=== PATIENT | male | born 1955 | race Caucasian/White ===

== ENCOUNTER 2019-10-12 00:08 | Day surgery (SDC) | payer OTHER, SELFPAY ==
[2019-10-08 10:33] VITALS: BMI 26.7
[2019-10-12 10:12] VITALS: BP 125/6; PULSE 63; RESP 20; TEMP 36.8; O2SAT 98
[2019-10-12] MEDS: LACTATED RINGERS 1,000 ML 150 ML IV CONT (10:25)
--- NOTE | 2019-10-12 11:27 | P.PNAN_ITS ---
Anes - Initial Pre Proc Eval Procedure: Operation Date: 10/12/19 11:30 Proposed Procedures p Screening Colonoscopy - Jorje Garces MD Date/Time: 10/12/19 11:27 Surgeon: Jorje Garces MD Pre Op Diagnosis: Neoplasm screening Patient Data Age: 64 Gender: M Height: 5 ft 10 in Weight: 86 kg Last Vital Signs Temp 36.8 C 10/12/19 10:12 Pulse 63 10/12/19 10:12 Resp 20 10/12/19 10:12 BP 125/6 L 10/12/19 10:12 Pulse Ox 98 10/12/19 10:12 Allergies Allergy/AdvReac Type Severity Reaction Status Date / Time hydralazine Allergy Intermediate Hives Verified 10/12/19 10:17 Home Medications Medication Instructions Recorded Confirmed Type fluticasone propionate 50 1 spray NASAL DAILY 05/13/19 10/08/19 History mcg/actuation nasal spray,suspension aspirin 81 mg tablet,delayed 81 mg PO QAM tablet 05/26/19 10/08/19 History release atorvastatin 40 mg tablet 40 mg PO DAILY #90 tablet 07/23/19 10/08/19 Rx lisinopril 20 1 tablet PO DAILY #90 tablet 08/04/19 10/08/19 Rx mg-hydrochlorothiazide 25 mg tablet Patient hx anesthesia problems: none Family hx anesthesia problems: none PMFSH Past Medical History Medical History Acute CVA (cerebrovascular accident) Adverse drug reaction Allergic reaction of correct medicinal substance properly administered Bicuspid aortic valve Essential (primary) hypertension Hyperlipidemia Stomach ulcer Upper GI bleed Surgical History Surgical History Hx of sinus surgery Family History Family History Mother COPD (chronic obstructive pulmonary disease) Cancer Father Diabetes mellitus Heart disease Hypertension Social History Social History Social History: Patient lives with his Ariane who he does needs to be a full code. 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 Patient is a lifelong non smoker and does not drink alcohol. He does not use illicit drugs. He has 3 children. 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 [employer] Gender identity (if verbalized by the patient): Male Spiritual care concerns: No Agree to blood products: No Anes - Eval Final PreProcedure Day of Procedure 10/12/19 11:27 Patient weight: overweight Heart: regular rate and rhythm Lungs: clear to auscultation Airway: Mallampati scale class II Neurological: alert and oriented Last oral intake: >/= 8 hours ASA classification: III Emergent: no Anesthetic plan: proceed Anesthesia type and monitoring: general GIVS and standard monitoring Informed Consent: The patient's anesthetic plan and its attendant risks and benefits were discussed with the patient/family/POA. Questions were solicited and answers provided to the satisfaction of the patient/family/POA.
--- NOTE | 2019-10-12 12:10 | PM.HPGS ---
History of Present Illness History of Present Illness Consent: Risks, benefits, and alternatives have been discussed and questions answered. Patient agrees to proceed with procedure. Chief complaint: Neoplasm screening Narrative: Luigi Vela is a 64 year old male here for screening colonoscopy, last one about 30 years ago Review of Systems Constitutional: Constitutional: Denies headache(s) and Denies weakness Eyes: Eyes: Denies blurry vision ENT: Reports Normal hearing present, Denies headache(s) and Denies neck pain Cardiovascular: Cardiovascular: Denies chest pain and Denies dyspnea Respiratory: Respiratory: Denies dyspnea Gastrointestinal: Gastrointestinal: Reports no additional gastrointestinal complaints Genitourinary: Genitourinary: Denies dysuria Musculoskeletal: Musculoskeletal: Denies neck pain Integumentary/Breasts: Skin/Breast: Denies dry skin Neurologic: Reports Normal hearing present, Denies headache(s) and Denies weakness Psychiatric: Psychiatric: Denies anxiety Endocrine: Endocrine: Denies change in body appearance Hematologic/Lymphatic: Hematologic/Lymphatic: Denies easy bleeding Allergic/Immunologic: Allergic/Immunologic: Denies urticaria PMFSH Past Medical History Medical History Acute CVA (cerebrovascular accident) Adverse drug reaction Allergic reaction of correct medicinal substance properly administered Bicuspid aortic valve Essential (primary) hypertension Hyperlipidemia Stomach ulcer Upper GI bleed Surgical History Surgical History Hx of sinus surgery Family History Family History Mother COPD (chronic obstructive pulmonary disease) Cancer Father Diabetes mellitus Heart disease Hypertension Social History Social History Social History: Patient lives with his Ariane who he does needs to be a full code. 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 He does not use illicit drugs. He has 3 children. 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 [employer] Gender identity (if verbalized by the patient): Male Spiritual care concerns: No Agree to blood products: No Meds Home Medications and Allergies Home Medications Medication Instructions Recorded Confirmed Type fluticasone propionate 50 1 spray NASAL DAILY 05/13/19 10/08/19 History mcg/actuation nasal spray,suspension aspirin 81 mg tablet,delayed 81 mg PO QAM tablet 05/26/19 10/08/19 History release atorvastatin 40 mg tablet 40 mg PO DAILY #90 tablet 07/23/19 10/08/19 Rx lisinopril 20 1 tablet PO DAILY #90 tablet 08/04/19 10/08/19 Rx mg-hydrochlorothiazide 25 mg tablet Allergies Allergy/AdvReac Type Severity Reaction Status Date / Time hydralazine Allergy Intermediate Hives Verified 10/12/19 10:17 Vital Signs Vital Signs - 24 hr 10/12/19 10:12 Temperature 98.2 F Pulse Rate 63 Respiratory Rate 20 Blood Pressure 125/6 L Pulse Oximetry 98 Exam Const: General: comfortable and no acute distress HENMT: General nose exam: Normal nares present Eyes: General: appearance normal, both eyes and all related structures Neck: Neck: no JVD Resp: Auscultation: clear to auscultation bilaterally Cardio: Rate: regular rate Rhythm: regular rhythm GI: Inspection: non-distended GI Palp: Yes Soft to palpation Skin: General skin exam: normal color Neuro: General: gait normal Speech: normal speech Extrem: General: normal to inspection Psych: Mental Status: mental status grossly normal Assessm
[2019-10-12 12:33] VITALS: BP 116/59; PULSE 61; RESP 17; O2SAT 100
[2019-10-12 12:43] VITALS: BP 133/66; PULSE 58; RESP 19; O2SAT 99
[2019-10-12 12:53] VITALS: BP 132/66; PULSE 58; RESP 21; O2SAT 100
== END 2019-10-12 13:05 | disposition home or self-care (01) ==
PROVIDERS: PCP Family Medicine; Visit Provider Internal Medicine Gastroenterology
PROC: 0DJD8ZZ Inspection of Lower Intestinal Tract, Via Natural or Artificial Opening Endoscopic (ICD-10-PCS; CPT 45378; principal; 2019-10-12 11:30)
DX: Z12.11 Encounter for screening for malignant neoplasm of colon (principal); D12.4 Benign neoplasm of descending colon; K57.30 Diverticulosis of large intestine without perforation or abscess without bleeding; K64.8 Other hemorrhoids; I10 Essential (primary) hypertension; E78.5 Hyperlipidemia, unspecified; Q23.1 Congenital insufficiency of aortic valve; Z87.11 Personal history of peptic ulcer disease; Z86.73 Personal history of transient ischemic attack (TIA), and cerebral infarction without residual deficits; Z79.82 Long term (current) use of aspirin
CPT/HCPCS: 45385; 88305; J2370; J2704; J7120

== ENCOUNTER 2020-04-04 14:06 | Outpatient (CLI) | payer OTHER, SELFPAY ==
--- NOTE | ~2020-04-04 | US_ITS ---
EXAMINATION: US art doppler w press LE BI DATE: 04/04/2020 14:45 INDICATION: Exercise-induced cramps and claudication TECHNIQUE: Segmental pressures and plethysmographic and Doppler waveforms of the brachial and lower e xtremity arteries were obtained. COMPARISON: None. FINDINGS: Right and left brachial artery pressures of 128 mm Hg and 127 mm Hg, respectively, are concordant (no rmal difference <= 30 mmHg). The right and left high-thigh pressure indices are 1.19 and 1.19, respec tively (normal > 1.2). The right ankle-brachial index (SARAHI) is 1.11 (normal >= 0.9-1). The right great toe-brachial index (T BI) is 0.59 (normal >= 0.6-0.8). The right lower extremity segmental pressure gradients are normal (n ormal gradients <= 20-30 mmHg between adjacent levels on the same leg or the same levels on the two l egs). Arterial waveforms are triphasic at the right superficial femoral artery and biphasic in the re maining arteries with brisk systolic upstrokes throughout. The left SARAHI is 1.15. The left TBI is 1.22. The left lower extremity segmental pressure gradients are normal accounting for likely artifactually elevated pressures at the left [id number] popliteal a rtery. Arterial waveforms are triphasic at the left common femoral, superficial femoral and popliteal arteries and biphasic at the left posterior tibial and dorsalis pedis arteries with brisk systolic u pstrokes throughout. IMPRESSION: 1. Normal SARAHI's bilaterally and normal left and borderline right TBIs. No significant occlusive disea se. Reviewed, dictated and finalized at location B. IMPRESSION: 1. Normal SARAHI's bilaterally and normal left and borderline right TBIs. No signi ficant occlusive disease.
== END 2020-04-04 14:07 | disposition home or self-care (01) ==
PROVIDERS: PCP Family Medicine; Visit Provider Nurse Practitioner Adult Health
DX: R25.2 Cramp and spasm (principal); I73.9 Peripheral vascular disease, unspecified
CPT/HCPCS: 93923

== ENCOUNTER 2020-10-16 09:27 | Outpatient (CLI) | payer OTHER, SELFPAY ==
--- NOTE | ~2020-10-16 | CT_ITS ---
EXAMINATION: CT diagnostic chest w con EXAM DATE: 10/16/2020 10:28 INDICATION: Ascending aortic aneurysm. TECHNIQUE: Spiral CT of the chest following intravenous injection of 75 mL Omnipaque 350. Axial, cor onal and sagittal images of the chest were reviewed. Coronal maximum intensity pixel images of chest reviewed. The dose-length product (DLP) for this examination was 191.12 mGy-cm. The exposure was t ailored according to patient size (auto mA exposure control), and iterative reconstruction (ASIR) was used as additional dose reduction technique. There is no prior study for comparison. FINDINGS: The aortic root measures 4.0 cm in diameter, mild dilated. The ascending aorta beyond this measures 3.6 cm, normal in caliber. There is no aortic dissection. The lungs are clear. There are n o pleural or pericardial effusions. Tracheobronchial tree is patent. There is no mediastinal, hil ar or axillary lymphadenopathy. There is no pneumothorax. Heart normal in size. There is mild c oronary arterial calcification, arterial sclerosis. Upper abdomen is unremarkable. There is thorac ic spondylosis without osteoblastic or osteolytic lesions identified. IMPRESSION: 1. Minimally dilated aortic root at 4.0 cm. Reviewed, dictated and finalized at location A.
[2020-10-16 10:22] LABS: Estimated Glomerular Filt Rate > 60
== END 2020-10-16 09:28 | disposition home or self-care (01) ==
LOC: ANHIMG 09:35
PROVIDERS: PCP Family Medicine; Visit Provider Internal Medicine Cardiovascular Disease
DX: I71.2 Thoracic aortic aneurysm, without rupture (principal)
CPT/HCPCS: 71260; Q9967

== ENCOUNTER 2021-12-26 01:09 | Day surgery (SDC) | payer MEDICARE, SELFPAY ==
[2021-12-25 14:46] VITALS: BMI 25.9
[2021-12-26] VITALS (9 sets, daily range): BP systolic 121–151; BP diastolic 56–80; PULSE 50–67; RESP 16; TEMP 36.6–37.1; O2SAT 96–100; BMI 25.9
[2021-12-26 09:17] LABS: Basophils Percent Auto 0.5 % (0.2-1.2); Eosinophils Absolute Auto 0.2 K/mm3 (0-0.3); Eosinophils Percent Auto 2.9 % (0-4.4); Hematocrit 43.1 % (42.0-52.0); Hemoglobin 14.2 g/dL (14.0-18.0); Immature Granulocyte Absolute 0.04 K/mm3 (0.00-0.031); Immature Granulocyte Percent A 0.5 % (0-0.5); Lymphocytes Absolute Auto 1.46 K/mm3 (0.9-3.2); Lymphocytes Percent Auto 20.1 % (18.3-44.2); Mean Corpuscular HGB Conc 32.9 g/dl (32-36); Mean Corpuscular Hemoglobin 29.6 pg (26-34); Mean Corpuscular Volume 89.8 fl (80-100); Mean Platelet Volume 9.7 fl (7.4-10.4); Monocytes Absolute Auto 0.8 K/mm3 (0.1-0.6); Monocytes Percent Auto 10.3 % (2.6-8.5); Neutrophils Absolute Auto 4.8 K/mm3 (1.3-6.7); Neutrophils Percent Auto 65.7 % (45.5-73.1); Platelet Count Result 229 k/mm3 (150-375); Red Cell Distribution Width 13.4 % (11.5-14.5); White Blood Count 7.3 K/mm3 (4.5-10.0)
[2021-12-26 09:26] LABS: Anion Gap 3 mmol/L (8-16); Blood Urea Nitrogen 20 mg/dL (9-20); Calcium 10.4 mg/dL (8.4-10.2); Carbon Dioxide 29 mmol/L (22-30); Chloride 107 mmol/L (98-107); Estimated CRCL calculation 82 ml/min; Estimated Glomerular Filt Rate > 60; Glucose 96 mg/dL (65-110); Potassium 4.1 mmol/L (3.4-5.0); Sodium 139 mmol/L (137-145)
[2021-12-26] MEDS: SODIUM CHLORIDE 0.9% IV 500 ML 100 ML IV CONT (09:30)
--- NOTE | 2021-12-26 09:48 | PM.IMHP ---
H&P: HPI History of Present Illness Date/Time: 12/26/21 09:48 Chief Complaint: Chest pain, abnormal stress test Narrative: 66-year-old male whom I followed for his bicuspid aortic valve (no significant /AI by echo 10/2021) and mild dilatation of the ascending aorta ( 4.0 cm in 10/2021) who has coronary artery calcification by CT. Recently in [facility] he had several hours of left-sided chest discomfort associated with left arm discomfort. This has recurred a couple more times since he has been back in [place], most recently at after he came home from the [employer] a week or 2 ago. Interestingly, he is able to exercise on his treadmill with no particular problems with chest discomfort, although he does complain of some dizziness when he gets off the treadmill. A recent stress test showed he had good exercise tolerance but significant ST depression on his EKG. He imaging did not show any perfusion defects, normal LV function. Because of the discrepant results on his stress test, suspicion of underlying coronary disease and chest pain I have recommended further evaluation with a cardiac catheterization. Patient also has a history of hypertension and 2 strokes in 2019. Review of Systems Constitutional: Constitutional: Denies fever(s) Cardiovascular: Cardiovascular: Reports chest pain, Denies pedal edema and Denies lightheadedness Respiratory: Respiratory: Denies chest congestion, Reports dyspnea and Reports dyspnea on exertion ( After is treadmill stress test in the office) Gastrointestinal: Gastrointestinal: Denies abdominal pain and Denies hematochezia Musculoskeletal: Musculoskeletal: Reports no additional musculoskeletal complaints Integumentary/Breasts: Skin/Breast: Reports system reviewed and no additional complaints, except as docu Neurologic: Reports system reviewed and no additional complaints, except as documented, Denies behavioral changes and Denies confusion Psychiatric: Psychiatric: Denies behavioral changes and Denies confusion [facility] Past Medical History Medical History (Updated 12/26/21 @ 09:54 by Fabi Sauceda MD) Adverse drug reaction Allergic reaction of correct medicinal substance properly administered Bicuspid aortic valve Environmental allergies Essential (primary) hypertension History of stroke (~04/2019) Hyperlipidemia Stomach ulcer Thoracic ascending aortic aneurysm Upper GI bleed Surgical History Surgical History Hx of sinus surgery Family History Family History Mother COPD (chronic obstructive pulmonary disease) Cancer Father Diabetes mellitus Heart disease heart attack age 55, CABG Hypertension Social History Social History Social History: Patient lives with his Ariane who he does needs to be a full code. 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 He does not use illicit drugs. He has 3 children. 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
--- NOTE | 2021-12-26 09:56 | WPDMODSED ---
Moderate Sedation Note-Pt Data Patient Data Diagnosis: chest pain, abnormal stress test Present Complaint: chest pain, abnormal stress test Procedure to be performed/Plan: conscious sedation Cardiac catheterization Possible PCI Allergies Allergy/AdvReac Type Severity Reaction Status Date / Time hydralazine Allergy Intermediate Hives Verified 12/26/21 08:52 Home Medications Medication Instructions Recorded Confirmed Type fluticasone propionate 50 1 spray intranasal DAILY 05/13/19 12/25/21 History mcg/actuation nasal spray,suspension (Allergy Relief (fluticasone)) aspirin 81 mg tablet,delayed 81 mg PO QAM 05/26/19 12/26/21 History release atorvastatin 40 mg tablet 40 mg PO DAILY #90 tabs 09/12/21 12/26/21 Rx metoprolol succinate 25 mg 25 mg PO DAILY 10/04/21 12/26/21 History tablet,extended release 24 hr lisinopril 20 1 tablet PO DAILY #90 tabs 10/22/21 12/26/21 Rx mg-hydrochlorothiazide 25 mg tablet Current Medications: Active Medications Sodium Chloride (Normal Saline Iv) 500 mls @ 100 mls/hr IV CONT .Q5H SHERRY Sedation/Anesthesia: No previous sedation/anesthesia problems (including family history). COUNTS INCLUDE 234 BEDS AT THE [facility] Past Medical History Medical History Adverse drug reaction Allergic reaction of correct medicinal substance properly administered Bicuspid aortic valve Environmental allergies Essential (primary) hypertension History of stroke (~04/2019) Hyperlipidemia Stomach ulcer Thoracic ascending aortic aneurysm Upper GI bleed Surgical History Surgical History Hx of sinus surgery Family History Family History (Updated 12/26/21 @ 09:52 by Fabi Sauceda MD) Mother COPD (chronic obstructive pulmonary disease) Cancer Father Diabetes mellitus Heart disease heart attack age 55, CABG Hypertension Social History Social History Social History: Patient lives with his Ariane who he does needs to be a full code. 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 He does not use illicit drugs. He has 3 children. 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 [employer] Gender identity (if verbalized by the patient): Male Spiritual care concerns: No Agree to blood products: No Mod Sed Physical Exam Physical Exam Pre Procedural Exam: Normal: Appearance, Eyes, Ears, Nose, Neck, Throat, Airway, Lungs, Heart Size ( 1-2/6 VITA upper sternal border), Heart Rate, Heart Rhythm, Neuro Exam, Abdomen, Extremities ( intact femoral and pedal pulses) and Skin Hours since solid foods: 12 Hours since liquid intake: 12 Mallampati Classification: class II Internal Medicine - PN: Obj Da Vital Signs Vital Signs: Vital Signs - 24 hr 12/26/21 09:15 Temperature 98.7 F Pulse Rate 53 L Respiratory Rate 16 Blood Pressure 121/56 L Pulse Oximetry 98 Oxygen Delivery Room Air Meds/Results Medications: Active Medications Generic Name Dose Route Start Last Admin Trade Name Freq PRN Reason Stop Dose Admin Sodium Chloride 500 mls @ 100 mls/hr 12/26/21 08:50 Normal Saline Iv IV CONT .Q5H SHERRY Labs CBC & Chem 7: 12/26/21 08:54 12/26/21 08:54 Labs: Laboratory Results - last 24 hr 12/26/21 12/26/21 08:54 08:54 WBC 7.3 RBC 4.80 Hgb 14.2 Hct 43.1 MCV 89.8 MCH 29.6 MCHC 32.9 RDW 13.4 Plt Count 229 MPV 9.7 Immature Gran % (Auto) 0.5 Neut % (Auto) 65.7 Lymph % (Auto) 20.1 [place] % (Auto) 10.3 H Eos % (Auto) 2.9
--- NOTE | 2021-12-26 10:39 | PM.OP ---
Procedure Note - Brief Procedure Note - Brief Date of procedure: 12/26/21 Pre-op diagnosis: chest pain and abn stress test Chest pain and abnormal stress Post-op diagnosis: Other ( minimal coronary plaquing) Procedure performed: conscious sedation left heart catheterization selective coronary angiography left ventriculography angiography the right common femoral artery Description of procedure: uneventful cardiac catheterization Surgeon: Fabi Sauceda MD Findings: minimal coronary plaquing
--- NOTE | 2021-12-26 10:44 | WPDCARDPROC ---
Cardiac Cath Procedure Note Date of procedure:: 12/27/21 Performing physician:: Fabi Sauceda MD Indication:: chest pain, abnormal stress Brief clinical history:: 66-year-old male whom I followed for his bicuspid aortic valve? (no significant /AI by echo 10/2021) and mild dilatation of the ascending aorta? ( 4.0 cm in 10/2021) who has coronary artery calcification by CT.? Recently in [facility] he had several hours of left-sided chest discomfort associated with left arm discomfort.? This has recurred a couple more times since he has been back in [place], most recently at after he came home from the [employer] a week or 2 ago.? Interestingly, he is able to exercise on his treadmill with no particular problems with chest discomfort, although he does complain of some dizziness when he gets off the treadmill.? A recent stress test showed he had good exercise tolerance but significant ST depression on his EKG.? He imaging did not show any perfusion defects, normal LV function.? Because of the discrepant results on his stress test, suspicion of underlying coronary disease and chest pain I have recommended further evaluation with a cardiac catheterization. Procedure Procedure performed:: Procedure: 1. Conscious sedation 2. Left heart catheterization 3. Selective Coronary angiography 4. Left ventriculography 5. Angiography of a right femoral artery . Sedation/Medication given:: Conscious sedation: The patient has no known prior history of adverse affects of conscious sedation. Oropharynx was clear. The patient is deemed a good candidate for conscious sedation. Conscious sedation began at: 10 12 Conscious sedation ended at: 1029 Total conscious sedation time: 17 minutes Medications: Versed 1 mg, 50 mcg IV push The patient had continuous hemodynamic monitoring, and was also continuously monitored by: Helene Reyez RN The patient tolerated conscious sedation well. . Access site:: right femoral artery Estimated blood loss:: 5 cc Procedure note:: Catheters: 5 Gambian arterial sheath, a 5 Gambian 4 cm right left Marly catheters, 5 Gambian pigtail Detailed procedure: After informed consent the patient brought to the metallurgical lab technician and the right femoral area was prepped and draped in the usual fashion. After conscious sedation and local anesthesia the right femoral artery was punctured and cannulated with the arterial sheath. Selective Coronary angiography was performed with the coronary catheters in multiple projections. These were withdrawn. The pigtail catheter was advanced into the central circulation and left ventricle for pressure measurements and left ventriculography which was performed in the CABRERA projection. This was withdrawn. angiography of the right common femoral artery was performed the sheath was a suitable position for the Angio-Seal vascular occlusion device. The arterial sheath was removed, Angio-Seal applied, and hemostasis was obtained.. The patient tolerated the procedure well with no complications. Estimated blood loss was negligible. Findings:: Pressures: Post angiographic aortic pressure: 170/80 mmHg Post angiographic LV pressure: 160/20 mmHg Left coronary artery: The left main, Left anterior descending and circumflex vessel is widely patent. There is mild coronary plaquing of the mid Left anterior descending. Right coronary artery the right coronary artery was widely patent. There is minimal coronary plaquing of the proximal mid segments. Left ventriculogram: Left ventriculography revealed good left ventricular function, no segmental wall motion abnormalities, ejection fraction 65%. No mitral regurgitation. Mildly dilated aortic root /sinuses of Valsalva. Conclusion:: 1. Widely patent vessels with minimal coronary plaquing as above 2. Normal left ventricular systolic function 3. N
== END 2021-12-26 14:15 | disposition home or self-care (01) ==
PROVIDERS: PCP Family Medicine; Visit Provider Internal Medicine Cardiovascular Disease
PROC: 4A023N7 Measurement of Cardiac Sampling and Pressure, Left Heart, Percutaneous Approach (ICD-10-PCS; CPT 93452; principal; 2021-12-26 10:00)
DX: I25.10 Atherosclerotic heart disease of native coronary artery without angina pectoris (principal); R94.39 Abnormal result of other cardiovascular function study; R07.9 Chest pain, unspecified; Q23.1 Congenital insufficiency of aortic valve; I77.810 Thoracic aortic ectasia; I10 Essential (primary) hypertension; E78.5 Hyperlipidemia, unspecified; Z79.82 Long term (current) use of aspirin
CPT/HCPCS: 36415; 80048; 85025; 93458; C1760; C1887; C1894; G0269; J1644; J2250; J3010; J7040

== ENCOUNTER 2021-12-27 09:03 | Observation (INO) | payer MEDICARE, SELFPAY ==
[2021-12-27] VITALS (8 sets, daily range): BP systolic 102–193; BP diastolic 61–86; PULSE 54–69; RESP 8–18; TEMP 36.4–36.7; O2SAT 97–100; BMI 26.4
--- NOTE | ~2021-12-27 | US_ITS ---
EXAMINATION: US arterial duplex LE RT DATE: 12/27/2021 10:17 INDICATION: Right groin swelling post cardiac catheterization one day prior. TECHNIQUE: Multiple grayscale and Doppler ultrasound images of the right groin were obtained. Segment al pressures and plethysmographic and Doppler waveforms of the brachial and lower extremity arteries were also obtained. COMPARISON: None FINDINGS: 10 x 10 x 9 mm pseudoaneurysm arising from the right common femoral artery with to and fro vascular f low in a thin 7 mm long neck. Normal triphasic waveform identified in the right common femoral and anaya perficial femoral arteries. Normal venous waveform with augmentation with compression but no arterial ization to suggest arteriovenous fistula. Right and left brachial artery pressures of 188 mm Hg and 175 mm Hg, respectively, are concordant (no rmal difference <= 30 mmHg). The right and left high-thigh pressure indices were unable to be obtaine d due to inability to occlude the vessels. The right ankle-brachial index (SARAHI) is 0.95 (normal >= 0.9-1). The right great toe-brachial index (T BI) is 0.61 (normal >= 0.6-0.8). The right lower extremity segmental pressure gradients are increased between the right [id number] popliteal artery and the right dorsalis pedis artery (normal gradie nts <= 20-30 mmHg between adjacent levels on the same leg or the same levels on the two legs). Arteri al waveforms demonstrate brisk systolic upstrokes throughout the arteries of the right lower limb. The left SARAHI is 0.96. The left TBI is 0.68. The left lower extremity segmental pressure gradients are normal. Arterial waveforms demonstrate brisk systolic upstrokes throughout the arteries of the left lower limb. IMPRESSION: 1. 1 cm pseudoaneurysm at the right groin which would be amenable to either thrombosed either with di rected pressure or thrombin injection. 2. No significant arterial occlusive disease to either lower limb with Normal SARAHI's and TBI's bilater ally. 3. Significant hypertension with brachial artery pressures on the right and left of 188 and 175 mmHg respectively Reviewed, dictated and finalized at location A. IMPRESSION: 1. 1 cm pseudoaneurysm at the right groin which would be amenable to either thr ombosed either with directed pressure or thrombin injection. 2. No significant arterial occlusive disease to either lower limb with Normal A BI's and TBI's bilaterally. 3. Significant hypertension with brachial artery pressures on the right and lef t of 188 and 175 mmHg respectively
--- NOTE | ~2021-12-27 | US_ITS ---
EXAMINATION: US arterial duplex LE RT DATE: 12/28/2021 14:34 INDICATION: Pseudoaneurysm TECHNIQUE: Multiple grayscale and Doppler ultrasound images of the right groin were obtained. COMPARISON: None FINDINGS: There is a persistent 1.3 x 1.2 x 1.1 cm anechoic pseudoaneurysm identified along side the right comm on femoral artery. The artery demonstrates normal triphasic waveforms on color Doppler. Upon closer i nspection the flow within the neck appear to be unidirectional towards the pseudoaneurysm with a seco nd exiting neck with efferent unidirectional directional flow was seen extending to the adjacent righ t common femoral vein. Color Doppler imaging of the right common femoral vein demonstrated normal russel ous waveform more distally in the thigh the neck but with elevated velocities and subtle arterializat ion of the waveform downstream from the region of the neck consistent with AV fistula formation. Dr. Miller discussed these findings with Julianna Carlson N.P. at 2:50 PM. IMPRESSION: 1. Persistent 1.3 x 1.2 x 1.1 cm pseudoaneurysm along an AV fistula extending between the right commo n femoral artery and the right common femoral vein. Reviewed, dictated and finalized at location A. IMPRESSION: 1. Persistent 1.3 x 1.2 x 1.1 cm pseudoaneurysm along an AV fistula extending b etween the right common femoral artery and the right common femoral vein.
[2021-12-27 09:40] LABS: Basophils Percent Auto 0.5 % (0.2-1.2); Eosinophils Absolute Auto 0.2 K/mm3 (0-0.3); Eosinophils Percent Auto 2.7 % (0-4.4); Hematocrit 43.1 % (42.0-52.0); Immature Granulocyte Absolute 0.03 K/mm3 (0.00-0.031); Immature Granulocyte Percent A 0.4 % (0-0.5); Lymphocytes Absolute Auto 1.53 K/mm3 (0.9-3.2); Lymphocytes Percent Auto 20.4 % (18.3-44.2); Mean Corpuscular HGB Conc 32.5 g/dl (32-36); Mean Corpuscular Hemoglobin 28.9 pg (26-34); Mean Platelet Volume 9.9 fl (7.4-10.4); Monocytes Absolute Auto 0.7 K/mm3 (0.1-0.6); Monocytes Percent Auto 8.7 % (2.6-8.5); Neutrophils Absolute Auto 5.1 K/mm3 (1.3-6.7); Neutrophils Percent Auto 67.3 % (45.5-73.1); Platelet Count Result 225 k/mm3 (150-375); Red Blood Count 4.84 M/mm3 (4.6-6.20); Red Cell Distribution Width 13.5 % (11.5-14.5); White Blood Count 7.5 K/mm3 (4.5-10.0)
--- NOTE | 2021-12-27 09:42 | PC.NURSE ---
Pt offered morphine and Zofran but does not wish to take medications at this time.
[2021-12-27 09:51] LABS: Alanine Aminotransferase 26 U/L (6-50); Albumin Level 3.9 g/dL (3.5-5.1); Alkaline Phosphatase 68 U/L (38-126); Anion Gap 6 mmol/L (8-16); Aspartate Amino Transferase 27 U/L (17-59); Bilirubin,Total 0.7 mg/dL (0.2-1.3); Blood Urea Nitrogen 15 mg/dL (9-20); Calcium 10.5 mg/dL (8.4-10.2); Carbon Dioxide 25 mmol/L (22-30); Chloride 105 mmol/L (98-107); Estimated CRCL calculation 82 ml/min; Estimated Glomerular Filt Rate > 60; Glucose 126 mg/dL (65-110); Potassium 3.8 mmol/L (3.4-5.0); Sodium 136 mmol/L (137-145)
[2021-12-27 09:52] LABS: Prothrombin Time 12.6 Seconds (11.1-14.7)
[2021-12-27 09:54] LABS: Partial Thromboplastin Time 27.3 SECONDS (22.3-36.8)
--- NOTE | 2021-12-27 11:09 | ED.WOUNDLAC ---
HPI - Wound/Laceration General Chief Complaint: Wound/Laceration Stated Complaint: Swelling at Cath Injection Site after procedure Time Seen by Provider: 12/27/21 09:13 Source: patient, RN notes reviewed and old records reviewed Mode of arrival: ambulatory Limitations: no limitations History of Present Illness HPI narrative: This is a 66 year old male who presents for evaluation of right groin swelling s/p cardiac catheterization. Patient states this morning he was sitting down and he felt pop in his right groin. He also noticed discomfort and swelling to his right groin at site of his cardiac catheterization from yesterday. PAtient reports difficulty walking due to pain in right groin. He denies numbness, tingling or limp weakness. He also denies dizziness. Related Data Home Medications Medication Instructions Recorded Confirmed fluticasone propionate 50 2 spray intranasal PRN PRN 05/13/19 12/27/21 mcg/actuation nasal Allergic Symptoms spray,suspension (Allergy Relief (fluticasone)) aspirin 81 mg tablet,delayed 81 mg PO QAM 05/26/19 12/27/21 release metoprolol succinate 25 mg 25 mg PO DAILY 10/04/21 12/27/21 tablet,extended release 24 hr Allergies Allergy/AdvReac Type Severity Reaction Status Date / Time hydralazine Allergy Intermediate Hives Verified 12/27/21 14:27 Review of Systems Review of Systems: All systems reviewed & are unremarkable except as noted in HPI and below Constitutional: Constitutional: Denies chills and Denies fever(s) Cardiovascular: Cardiovascular: Denies chest pain, Denies rapid heart rate and Denies slow heart rate Gastrointestinal: Gastrointestinal: Denies abdominal pain, Denies bloating and Denies diarrhea Integumentary/Breasts: Skin/Breast: Denies pruritus and Denies erythema Neurologic: Denies focal weakness [facility] Past Medical History Medical History (Updated 12/27/21 @ 11:45 by Orquidea Nye MD) Adverse drug reaction Allergic reaction of correct medicinal substance properly administered Bicuspid aortic valve Environmental allergies Essential (primary) hypertension History of stroke (~04/2019) Hyperlipidemia Stomach ulcer Thoracic ascending aortic aneurysm Upper GI bleed Surgical History Surgical History (Updated 12/27/21 @ 11:17 by Orquidea Nye MD) Hx of sinus surgery S/P cardiac catheterization Family History Family History (Updated 12/26/21 @ 09:52 by Fabi Sauceda MD) Mother COPD (chronic obstructive pulmonary disease) Cancer Father Diabetes mellitus Heart disease heart attack age 55, CABG Hypertension Social History Social History Social History: Patient lives with his Ariane who he does needs to be a full code. 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 He does not use illicit drugs. He has 3 children. 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 [employer] Gender identity (if verbalized by the patient): Male Spiritual care concerns: No Agree to blood products: No Exam Const: General: alert Nutritional Appearance: well nourished Orientation/consciousness: patient oriented x3 HENMT: Head: normal to inspection Eyes: EOM: EOMs intact bilaterally Resp: Effort & Inspection: normal respiratory effort Auscultation: clear to auscultation bilaterally Cardio: Rate: regular rate Rhythm: regular rhythm Heart sounds: no murmurs GI: GI Palp: Yes Soft to palpation, No Guarding due to palpation present (GI) and No Rigid due to palpation Skin: General skin exam: normal color Rashes: no rashes Neuro: General: patient oriented x3, moves all extremities
[2021-12-27 12:41] LABS: SARS-CoV-2 RNA PCR Negative
--- NOTE | 2021-12-27 16:03 | PM.IMHP ---
H&P: HPI History of Present Illness Date/Time: 12/27/21 16:03 Chief Complaint: Pain at cath site, pseudoaneurysm Narrative: Mr. Luigi Vela is a 66-year-old male who had a cardiac catheterization yesterday. The site was closed with an Angio-Seal vascular occlusion device. Fortunately the cardiac cath showed minimal coronary plaquing and he was discharged. This morning while being up and around he has felt a ?pop? and some pain and discomfort in the right groin and came to the emergency room. There was no exterior bleeding. Ultrasound showed a 1 cm pseudoaneurysm of the right femoral artery. Review of Systems Constitutional: Constitutional: Denies fever(s) Eyes: Eyes: Reports no additional eye complaints ENT: Denies epistaxis Cardiovascular: Cardiovascular: Denies chest pain, Denies pedal edema, Denies lightheadedness and Denies dyspnea Respiratory: Respiratory: Denies chest congestion and Denies dyspnea Gastrointestinal: Gastrointestinal: Denies abdominal pain and Denies hematochezia Musculoskeletal: Musculoskeletal: Reports joint swelling (Lump and tenderness of the right groin) Comments: Difficulty walking secondary to pain Integumentary/Breasts: Skin/Breast: Reports system reviewed and no additional complaints, except as docu Neurologic: Reports system reviewed and no additional complaints, except as documented, Denies behavioral changes and Denies confusion Psychiatric: Psychiatric: Denies behavioral changes and Denies confusion [facility] Past Medical History Medical History (Updated 12/27/21 @ 11:45 by Orquidea Nye MD) Adverse drug reaction Allergic reaction of correct medicinal substance properly administered Bicuspid aortic valve Environmental allergies Essential (primary) hypertension History of stroke (~04/2019) Hyperlipidemia Stomach ulcer Thoracic ascending aortic aneurysm Upper GI bleed Surgical History Surgical History (Updated 12/27/21 @ 11:17 by Orquidea Nye MD) Hx of sinus surgery S/P cardiac catheterization Family History Family History (Updated 12/26/21 @ 09:52 by Fabi Sauceda MD) Mother COPD (chronic obstructive pulmonary disease) Cancer Father Diabetes mellitus Heart disease heart attack age 55, CABG Hypertension Social History Social History Social History: Patient lives with his Ariane who he does needs to be a full code. 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 He does not use illicit drugs. He has 3 children. 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 [employer] Gender identity (if verbalized by the patient): Male Spiritual care concerns: No Agree to blood products: No Meds Home Medications and Allergies Home Medications Medication Instructions Recorded Confirmed Type fluticasone propionate 50 2 spray intranasal PRN PRN 05/13/19 12/27/21 History mcg/actuation nasal Allergic Symptoms spray,suspension (Allergy Relief (fluticasone)) aspirin 81 mg tablet,delayed 81 mg PO QAM 05/26/19 12/27/21 History release atorvastatin 40 mg tablet 40 mg PO DAILY #90 tabs 09/12/21 12/27/21 Rx metoprolol succinate 25 mg 25 mg PO DAILY 10/04/21 12/27/21 History tablet,extended release 24 hr lisinopril 20 1 tablet PO DAILY #90 tabs 10/22/21 12/27/21 Rx mg-hydrochlorothiazide 25 mg tablet Allergies Allergy/AdvReac Type Severity Reaction Status Date / Time hydralazine Allergy Intermediate Hives Verified 12/27/21 14:27 Vital Signs Vital Signs - 24 hr 12/27/21 09:12 12/27/21 11:18 12/27/21 11:19 Temperature 97.7 F Pulse Rate 63 55 L 54 L Respiratory Rate 18 13 1
--- NOTE | 2021-12-27 16:48 | PC.NURSE ---
Dr Marinelli called qc lab technician and requested manual pressure held to patient's groin. I arrived to room at [address] marinelli was at bedside disscussing poc with patient and family. upon palpation the groin felt soft with a small linear hematoma noted. I held manual pressure to right femoral artery with palpable pulse from [id number]. dp pulses present and palpated by gomez arevalo. patient tolerated well and said the groin felt like a bruise being pushed on. after manual pressure patient's groin was soft and hematoma was less palpable. patient education given and i had patient fell his groin to know the new baseline of what it felt like. side rails up x2 call light with in reach.
[2021-12-27] MEDS: lisinopriL 10 MG TABLET PO (18:01)
[2021-12-27] MEDS: MELATONIN 5 MG TABLET 10 MG PO (21:09)
[2021-12-28] VITALS: PULSE 56
[2021-12-28 04:00] VITALS: PULSE 56
[2021-12-28 06:00] VITALS: BP 111/58; PULSE 65; RESP 18; TEMP 36.1; O2SAT 97
[2021-12-28 08:00] VITALS: PULSE 59; O2SAT 97
[2021-12-28] MEDS: ATORVASTATIN 40 MG TABLET PO (09:27)
[2021-12-28] MEDS: lisinopriL 20 MG TABLET PO (09:27)
[2021-12-28] MEDS: hydroCHLOROthiazide 25 MG TABLET PO (09:27)
[2021-12-28 09:28] VITALS: PULSE 62
[2021-12-28] MEDS: METOPROLOL SUCCINATE EXT REL 25 MG TABCR PO (09:28)
[2021-12-28] MEDS: FLUTICASONE PROPIONATE 0.05% NA SPR 16 GM BTL (*BKC) 2 SPRAY NASAL (09:28)
[2021-12-28 12:00] VITALS: PULSE 57
--- NOTE | 2021-12-28 13:47 | P.DS_ITS ---
DS: Discharge Diagnosis Discharge Diagnosis (1) Pseudoaneurysm of femoral artery: Code(s): I72.4 - Aneurysm of artery of lower extremity Status: Acute Assessment and Plan: Patient developed a pseudoaneurysm at the cardiac catheterization puncture site. * This is small, 1 cm, and not very symptomatic. Pedal pulses are intact. No clinical evidence of retroperitoneal hemorrhage. * Discussed pseudoaneurysm with patient; I am not concerned that he will ?bleed out? and this is different from a true aneurysm. Discussed treatments with patient: Conservative management (decreased activity and follow-up), versus local pressure verses thrombin injection. * Thrombin injection discussed with ultrasound can be done tomorrow * In the meantime, 1 of the cath nurses will apply local compression for 30 minutes. * Re-evaluate with an ultrasound tomorrow for possible thrombin injection * Pain medications p.r.n. (2) Essential (primary) hypertension: Code(s): I10 - Essential (primary) hypertension Status: Acute Assessment and Plan: Patient's blood pressure was elevated in the emergency room, 170-190 mmHg, although of course he was stressed at that time. * BP remains a bit elevated, in the 150s * Will give an extra lisinopril 10 mg and re-evaluate tomorrow (tends to run bradycardic so can't incr metoprolol). DS: Summary Time Spent with Patient Time attestation: Total time spent providing and/or coordinating discharge services: Exam Const: General: cooperative, healthy appearing and comfortable; No confusion Orientation/consciousness: oriented to person, patient oriented x3 and No confusion HENMT: Mouth: Yes moist mucous membranes Eyes: EOM: EOMs intact bilaterally Neck: Neck: supple and no JVD Thyroid: thyroid normal Resp: Effort & Inspection: normal respiratory effort Auscultation: clear to auscultation bilaterally Cardio: Rate: regular rate Rhythm: regular rhythm Heart sounds: no murmurs GI: Inspection: normal to inspection Skin: Wounds: wounds noted Other: The right femoral area actually is fairly unremarkable, with no palpable hematoma or pseudoaneurysm. No tenderness. The pulse is intact as are the distal pulses. I do not appreciate any bruit. Neuro: General: oriented to person, patient oriented x3 and No confusion Extrem: Right lower extremity: no edema Left lower extremity: no edema Psych: Appearance: grossly normal Mental Status: mental status grossly normal Discharge Plan Discharge Discharge Medications: No Action fluticasone propionate [Allergy Relief (fluticasone)] 50 mcg/actuation spray,suspension 2 spray NASAL PRN PRN (Reason: Allergic Symptoms) aspirin 81 mg tablet,delayed release (DR/EC) 81 mg PO QAM metoprolol succinate 25 mg tablet extended release 24 hr 25 mg PO DAILY atorvastatin 40 mg tablet 40 mg PO DAILY Qty: 90 1RF lisinopril-hydrochlorothiazide 20-25 mg tablet 1 tablet PO DAILY Qty: 90 1RF Date of admission: 12/27/21 11:46 Primary Care Provider: Sophy Corbin Admitting Provider: Fabi Sauceda Attending physician on admission: Fabi Sauceda Condition: Serious
[2021-12-28 15:31] LABS: Hematocrit 42.6 % (42.0-52.0); Hemoglobin 13.7 g/dL (14.0-18.0); Mean Corpuscular HGB Conc 32.2 g/dl (32-36); Mean Corpuscular Hemoglobin 29.1 pg (26-34); Mean Corpuscular Volume 90.6 fl (80-100); Mean Platelet Volume 9.8 fl (7.4-10.4); Platelet Count Result 236 k/mm3 (150-375); Red Cell Distribution Width 13.5 % (11.5-14.5); White Blood Count 9.4 K/mm3 (4.5-10.0)
--- NOTE | 2021-12-28 15:53 | PM.PNCARD ---
Subjective Date/time seen: 12/28/21 15:53 Cardiology follow up for Objective Data Vital Signs Vital Signs: Vital Signs - 24 hr 12/27/21 17:21 12/27/21 21:23 12/27/21 20:00 Temperature 36.4 C L Pulse Rate 69 69 Respiratory Rate 18 Blood Pressure 102/64 Pulse Oximetry 97 97 Oxygen Delivery Room Air 12/28/21 00:00 12/28/21 04:00 12/28/21 06:00 Temperature 36.1 C L Pulse Rate 56 L 56 L 65 Respiratory Rate 18 Blood Pressure 111/58 L Pulse Oximetry 97 Oxygen Delivery 12/28/21 09:28 12/28/21 08:00 12/28/21 12:00 Temperature Pulse Rate 62 59 L 57 L Respiratory Rate Blood Pressure Pulse Oximetry Oxygen Delivery 12/28/21 08:00 Temperature Pulse Rate Respiratory Rate Blood Pressure Pulse Oximetry 97 Oxygen Delivery Room Air Intake/Output Intake/Output: Intake & Output 12/25/21 12/26/21 12/27/21 12/28/21 23:59 23:59 23:59 23:59 Intake Total 790 1040 Output Total 250 Balance 540 1040 Meds/Results Medications: Active Medications Generic Name Dose Route Start Last Admin Trade Name Freq PRN Reason Stop Dose Admin Acetaminophen 650 mg 12/27/21 16:07 Acetaminophen 325 Mg Tablet PO Q4H PRN Mild Pain (1-3) Atorvastatin Calcium 40 mg 12/28/21 09:00 12/28/21 09:27 Atorvastatin 40 Mg Tablet PO 40 mg DAILY SHERRY Administration Fluticasone Propionate 2 spray 12/27/21 16:06 12/28/21 09:28 Fluticasone Propionate 0.05% Na Spr 16 Gm Btl (*Bkc) NASAL 2 spray PRN PRN Administration Allergic Symptoms Hydrochlorothiazide 25 mg 12/28/21 09:00 12/28/21 09:27 Hydrochlorothiazide 25 Mg Tablet PO 25 mg QAM SHERRY Administration Lisinopril 20 mg 12/28/21 09:00 12/28/21 09:27 Lisinopril 20 Mg Tablet PO 20 mg QAM SHERRY Administration Lisinopril 10 mg 12/27/21 17:27 Lisinopril 10 Mg Tablet PO Q6H PRN Hypertension Melatonin 10 mg 12/27/21 20:03 12/27/21 21:09 Melatonin 5 Mg Tablet PO 10 mg HS PRN Administration Insomnia Metoprolol Succinate 25 mg 12/28/21 09:00 12/28/21 09:28 Metoprolol Succinate Ext Rel 25 Mg Tabcr PO 25 mg DAILY SHERRY Administration Morphine Sulfate 4 mg 12/27/21 11:45 Morphine Sulfate (*Crx) 4 Mg/Ml Inj IV PUSH Q2H PRN Pain Rated 7-10 Ondansetron HCl 4 mg 12/27/21 11:45 Ondansetron Inj 4 Mg/2 Ml Vial IV PUSH Q4H PRN Nausea Oxycodone/Acetaminophen 1 tablet 12/27/21 16:07 Oxycodone/Acetaminophen (*Crx) 5-325 Mg Tablet PO Q4H PRN Pain Rated 4-6 Radiology Results: ITS Impressions Duplex Scan Lower Extremity Artery 12/28/21 14:49 IMPRESSION: 1. Persistent 1.3 x 1.2 x 1.1 cm pseudoaneurysm along an AV fistula extending between the right common femoral artery and the right common femoral vein. Labs Labs: Laboratory Results - last 24 hr 12/28/21 15:24 WBC 9.4 RBC 4.70 Hgb 13.7 L Hct 42.6 MCV 90.6 MCH 29.1 MCHC 32.2 RDW 13.5 Plt Count 236 MPV 9.8
--- NOTE | 2021-12-28 16:23 | PM.DS ---
DS: Admitting Diagnosis Discharge Date 12/28/2021 Admitting Diagnosis Groin pain s/p [facility] DS: Discharge Diagnosis Discharge Diagnosis (1) Pseudoaneurysm of femoral artery: Code(s): I72.4 - Aneurysm of artery of lower extremity Status: Acute Assessment and Plan: Patient developed a pseudoaneurysm at the cardiac catheterization puncture site.? This is small, 1 cm, and not very symptomatic.? Pedal pulses are intact.? No clinical evidence of retroperitoneal hemorrhage. Discussed pseudoaneurysm with patient 30 minutes manual pressure applied last evening Repeat ultrasound today showed oersistent 1.3 x 1.2 x 1.1 cm pseudoaneurysm along an AV fistula extending between the right common femoral artery and the right common femoral vein. Discussed these results with Dr. Sauceda. Recommendations with input/advice from vascular surgery are for discharge and repeat ultrasound as an outpatient to reassess in 2 weeks. VSS, H&H stable. Clinical improvement from yesterday with no pain or tenderness at the site, minimal swelling. Safe for patient to be discharged home today. Patient is to monitor site for any further swelling, bruising, and to monitor for any tenderness, numbness/tingling in RLE. He is aware he should proceed to the ER immediately if any of these symptoms occur. DS: Summary Hospital Course Reason for hospitalization: Femoral artery pseudoaneurysm after [facility] Hospital Course: Presented to the ED with a complaint of feeling a pop in his right groin followed by pain and swelling. Entered the hospital after he was found to have a 1 cm pseudoaneurysm at the right groin. This morning he was free from tenderness/pain and had minimal swelling/ecchymosis. Repeat u/s showed persistent 1.3 x 1.2 x 1.1 cm pseudoaneurysm along an AV fistula extending between the right common femoral artery and the right common femoral vein. Vital signs, H&H stable. Plan to discharge home with plan for OP repeat u/s in 2 weeks. Time Spent with Patient Time attestation: Total time spent providing and/or coordinating discharge services: 50 minutes Exam Const: General: cooperative, healthy appearing and comfortable; No confusion Orientation/consciousness: oriented to person, patient oriented x3 and No confusion HENMT: Mouth: Yes moist mucous membranes Eyes: EOM: EOMs intact bilaterally Neck: Neck: supple and no JVD Thyroid: thyroid normal Resp: Effort & Inspection: normal respiratory effort Auscultation: clear to auscultation bilaterally Cardio: Rate: regular rate Rhythm: regular rhythm Heart sounds: no murmurs GI: Inspection: normal to inspection GI Palp: No abdominal tenderness Skin: Wounds: wounds noted Other: The right femoral area actually is fairly unremarkable, with no palpable hematoma or pseudoaneurysm. No tenderness. The pulse is intact as are the distal pulses. I did not appreciate any bruit on exam today. Neuro: General: oriented to person, patient oriented x3 and No confusion Extrem: Right lower extremity: no edema Left lower extremity: no edema Psych: Appearance: grossly normal Mental Status: mental status grossly normal DS: Data Data Completed and Pending Labs on day of discharge: Labs from last 24 hours 12/28/21 15:24 WBC 9.4 RBC 4.70 Hgb 13.7 L Hct 42.6 MCV 90.6 MCH 29.1 MCHC 32.2 RDW 13.5 Plt Count 236 MPV 9.8 Discharge Plan Discharge Discharging Clinician: Julianna Carlson Patient Disposition: Home, Self-Care Activity: may shower Diet: regular Discharge Instructions: Take it easy for the next couple of weeks. NO lifting, pushing, pulling anything over 5 pounds. Do not physically exert yourself. If you experience any pain, tenderness, swelling, numbness/tingling in the left leg proceed to the emergency room immediately ([facility] or [facility] as we discussed). Patient Instructions: Antibiotic Form Stand Alone Forms: Gene
== END 2021-12-28 17:05 | disposition home or self-care (01) ==
LOC: ANHED 11:45 → ANH3MEDSUR 13:15
PROVIDERS: Nurse Practitioner; Admitting Provider Internal Medicine Cardiovascular Disease; Emergency Provider General Practice; PCP Family Medicine; Visit Provider Internal Medicine Cardiovascular Disease
DX: T81.718A Complication of other artery following a procedure, not elsewhere classified, initial encounter (principal); I72.4 Aneurysm of artery of lower extremity; Y84.0 Cardiac catheterization as the cause of abnormal reaction of the patient, or of later complication, without mention of misadventure at the time of the procedure; I71.2 Thoracic aortic aneurysm, without rupture; Q23.1 Congenital insufficiency of aortic valve; E78.5 Hyperlipidemia, unspecified; I10 Essential (primary) hypertension; Z72.89 Other problems related to lifestyle; Z86.73 Personal history of transient ischemic attack (TIA), and cerebral infarction without residual deficits; Z20.822 Contact with and (suspected) exposure to COVID-19; Z79.51 Long term (current) use of inhaled steroids; Z79.82 Long term (current) use of aspirin; Z79.899 Other long term (current) drug therapy
CPT/HCPCS: 36415; 80053; 85025; 85027; 85610; 85730; 93926; 99285; A9270; C9803; G0378; U0003; U0005

== ENCOUNTER 2022-01-11 08:12 | Outpatient (CLI) | payer MEDICARE, SELFPAY ==
--- NOTE | ~2022-01-11 | US_ITS ---
EXAMINATION: US arterial duplex LE RT DATE: 01/11/2022 09:17 INDICATION: Right common femoral artery pseudoaneurysm TECHNIQUE: Multiple grayscale and Doppler ultrasound images of the arteries of the right lower limb w ere obtained. COMPARISON: 12/28/2021 FINDINGS: There are normal triphasic arterial waveforms the right common femoral, femoral and femoral, superfic ial femoral, popliteal, posterior tibial, anterior tibial, peroneal and dorsalis pedis arteries. No h emodynamically significant stenosis evident either on grayscale imaging or abnormally increased or de creased gradient of peak systolic velocities. Again seen is a small pseudoaneurysm measuring approxim ately 1.4 x 1.1 cm along an AV fistula extending between the right common femoral artery and the righ t common femoral vein. IMPRESSION: 1. Persistent 1.4 x 1.1 cm aneurysm along an AV fistula extending between the right common femoral ar joe and the right common femoral vein. 2. No hemodynamically significant stenosis evident along the arteries of the right lower limb. Reviewed, dictated and finalized at location A. IMPRESSION: 1. Persistent 1.4 x 1.1 cm aneurysm along an AV fistula extending between the r ight common femoral artery and the right common femoral vein. 2. No hemodynamically significant stenosis evident along the arteries of the ri t lower limb.
== END 2022-01-11 08:13 | disposition home or self-care (01) ==
PROVIDERS: PCP Family Medicine; Visit Provider Nurse Practitioner
DX: I72.4 Aneurysm of artery of lower extremity (principal)
CPT/HCPCS: 93926

== ENCOUNTER 2022-11-27 13:40 | Outpatient (CLI) | payer MEDICARE, SELFPAY ==
--- NOTE | ~2022-11-27 | CT_ITS ---
CT Scan of the Chest without Contrast: Clinical Indication: Ascending aortic aneurysm Technique: Contiguous sections were acquired throughout the chest without intravenous contrast. Dose reduction technique was used on this scan by utilizing automated exposure control and iterative recon struction technique. The dose-length product (DLP) was 268.69 mGy-cm. COMPARISON: 10/16/2020 Findings: There is no evidence of any significant mediastinal, hilar or axillary lymphadenopathy. Mild coronary artery calcifications are present. Aortic root again measures 4 cm in diameter. There is no evidence of pleural or pericardial effusion. The lungs are clear. No pulmonary nodules or infiltrates are noted. Images through the upper abdomen reveal stable hepatic cyst. Impression: Aortic root again measures 4 cm in diameter, stable from prior exam. Reviewed, dictated and finalized at location . Impression: Aortic root again measures 4 cm in diameter, stable from prior exam.
== END 2022-11-27 13:41 | disposition home or self-care (01) ==
PROVIDERS: PCP Family Medicine; Visit Provider Internal Medicine Cardiovascular Disease
DX: I71.21 Aneurysm of the ascending aorta, without rupture (principal)
CPT/HCPCS: 71250

== ENCOUNTER 2023-06-06 12:34 | Outpatient (CLI) | payer MEDICARE, SELFPAY ==
--- NOTE | ~2023-06-06 | US_ITS ---
US thyroid INDICATION: Hypercalcemia. Hyperparathyroidism. TECHNIQUE: Real-time sonographic images of the thyroid gland were obtained. COMPARISON: No prior studies for comparison. FINDINGS: The right thyroid lobe measures 3.8 x 1.7 x 1.6 cm. The left thyroid lobe measures 4 x 1.2 x 1.5 cm. There is normal echotexture and echogenicity throughout the thyroid gland. In the right th yroid lobe there is an oval solid hypoechoic mass that is wider than tall, smoothly marginated withou t echogenic foci, TR 4. In the left lobe there is a 4 mm cyst. Normal vascular flow is present. IMPRESSION: 1. Small bilateral thyroid nodules, likely benign. Reviewed, dictated and finalized at location A. 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
== END 2023-06-06 12:35 | disposition home or self-care (01) ==
PROVIDERS: PCP Family Medicine; Visit Provider Internal Medicine
DX: E21.0 Primary hyperparathyroidism (principal); E04.2 Nontoxic multinodular goiter
CPT/HCPCS: 76536

== ENCOUNTER 2023-09-02 08:50 | Outpatient (CLI) | payer MEDICARE, SELFPAY ==
--- NOTE | ~2023-09-02 | NM_ITS ---
EXAMINATION: NM parathyroid imaging w spect DATE: 09/02/2023 12:42 INDICATION: Hypercalcemia. TECHNIQUE: 19.0 mCi Tc99m sestamibi was administered intravenously. Anterior images of the neck were obtained immediately and at 3 hours. SPECT images of the neck were obtained. COMPARISON: Chest CT 11/27/2022 FINDINGS: There is persistent increased activity in the area of right thyroid lobe. IMPRESSION: 1. Persistent increased activity in the area of right thyroid lobe, consistent with a parathyroid leti noma. Reviewed, dictated and finalized at location E. IMPRESSION: 1. Persistent increased activity in the area of right thyroid lobe, consistent with a parathyroid adenoma.
== END 2023-09-02 08:51 | disposition home or self-care (01) ==
PROVIDERS: PCP Family Medicine; Visit Provider Internal Medicine
DX: E83.52 Hypercalcemia (principal)
CPT/HCPCS: 78071; A9500

== ENCOUNTER 2023-12-25 15:55 | Observation (INO) | payer MEDICARE, SELFPAY ==
[2023-12-25] VITALS (8 sets, daily range): BP systolic 130–153; BP diastolic 72–102; PULSE 54–169; RESP 15–99; TEMP 36.4; O2SAT 96–99; BMI 27.9
--- NOTE | ~2023-12-25 | XR_ITS ---
XR chest 1V portable Ordering provider: Tiara Marte MD History: 68 years Male with . Cardiac arrhythmia . Comparison: May 02, 2019 FINDINGS: MEDIASTINUM: The cardiac silhouette is not enlarged. LUNGS: No infiltrates, effusions or pneumothorax. OTHER: No free air under the diaphragm. IMPRESSION: No acute cardiopulmonary pathology. Reviewed, dictated and finalized at location A.
--- NOTE | 2023-12-25 15:57 | ECG_ITS ---
Test Date: 2023-12-25 16:17:10 Measurements Intervals [place] Rate: 72 P: 62 HI: 172 QRS: 23 QRSD: 107 T: 42 QT: 343 QTc: 378 Interpretive Statements SINUS RHYTHM INCOMPLETE RIGHT BUNDLE BRANCH BLOCK BASELINE ARTIFACT- I, II, III, AVR, AVL, AVF, V2 BORDERLINE ECG No previous ECG available for comparison Electronically Signed On 12-25-2023 18:52:58 CDT by Jose Alejandro Sheridan D.O.
--- NOTE | 2023-12-25 16:13 | ED.ARRPALP ---
HPI - Arrhythmia/Palpitations General Chief Complaint: Arrhythmia/Palpitations Stated Complaint: fluttering heart Time Seen by Provider: 12/25/23 16:13 Source: patient Mode of arrival: ambulatory Limitations: no limitations History of Present Illness HPI narrative: Patient referred to our emergency room by Dr. Ken office for tachyarrhythmia and for admission. Patient report having fast heartbeat, fluttery like feeling and chest pain started 5 days ago. Intermittent, getting worse. At the Cardiology office patient heart rate was in the 170s, patient referred to our emergency room for further evaluation. History of hypertension, hyperlipidemia, hypothyroidism Related Data Home Medications Medication Instructions Recorded Confirmed aspirin 81 mg tablet,delayed 81 mg PO QAM 05/26/19 12/25/23 release Allergies Allergy/AdvReac Type Severity Reaction Status Date / Time hydralazine Allergy Intermediate Hives Verified 12/25/23 15:56 Review of Systems Review of Systems: All systems reviewed & are unremarkable except as noted in HPI and below PMFSH Past Medical History Medical History Bicuspid aortic valve Environmental allergies Erectile dysfunction Essential (primary) hypertension History of stroke (~04/2019) Hyperlipidemia Primary hyperparathyroidism Pseudoaneurysm of femoral artery (~12/2021) right status post cardiac catheterization, resolved spontaneously Stomach ulcer Thoracic ascending aortic aneurysm Upper GI bleed Surgical History Surgical History Hx of sinus surgery (~1985) S/P cardiac catheterization (~11/2021) Family History Family History Mother COPD (chronic obstructive pulmonary disease) Cancer Father Diabetes mellitus Heart disease heart attack age 55, CABG Hypertension Social History Social History Social History: Patient lives with his Ariane who he does needs to be a full code. 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 He does not use illicit drugs. He has 3 children. 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 MUSCULOSKELETAL: NORMAL RANGE OF MOTION, NONTENDER BACK NEUROLOGIC: ALERT AND ORIENTED ?3, FIELD SUPPORT ENGINEER IS NORMAL TESTED, NO GROSS MOTOR DEFICIT
[2023-12-25] MEDS: SODIUM CHLORIDE 0.9% IV 1,000 ML 999 ML (16:14)
[2023-12-25] MEDS: ADENOSINE IV SOLN 6 MG/2 ML VIAL IV PUSH (16:14)
--- NOTE | 2023-12-25 16:15 | PC.NURSE ---
6mg adenosine IVP given at 1610
--- NOTE | 2023-12-25 16:15 | PC.NURSE ---
10ml diltaziem given IVP 1615
[2023-12-25] MEDS: dilTIAZem HCl INJ 25 MG/5 ML VIAL 10 MG IV PUSH (16:16)
--- NOTE | 2023-12-25 16:16 | ECG_ITS ---
Test Date: 2023-12-25 16:00:06 Measurements Intervals [place] Rate: 170 P: 0 ID: 0 QRS: -24 QRSD: 121 T: -15 QT: 260 QTc: 438 Interpretive Statements ATRIAL FLUTTER/TACHYCARDIA WITH RAPID VENTRICULAR RESPONSE INCOMPLETE RIGHT BUNDLE BRANCH BLOCK BORDERLINE R WAVE PROGRESSION, ANTERIOR LEADS BASELINE ARTIFACT- I, III, AVL, AVF ABNORMAL ECG No previous ECG available for comparison Electronically Signed On 12-26-2023 14:09:18 CDT by Jose Alejandro Sheridan D.O.
[2023-12-25 16:32] LABS: Basophils Absolute Auto 0.1 K/mm3 (0.0-0.1); Basophils Percent Auto 0.6 % (0.2-1.2); Eosinophils Absolute Auto 0.2 K/mm3 (0-0.3); Eosinophils Percent Auto 2.3 % (0-4.4); Hematocrit 50.9 % (42.0-52.0); Hemoglobin 17.2 g/dL (14.0-18.0); Immature Granulocyte Absolute 0.05 K/mm3 (0.00-0.031); Immature Granulocyte Percent A 0.5 % (0-0.5); Lymphocytes Absolute Auto 2.61 K/mm3 (0.9-3.2); Lymphocytes Percent Auto 25.8 % (18.3-44.2); Mean Corpuscular HGB Conc 33.8 g/dl (32-36); Mean Corpuscular Volume 88.8 fl (80-100); Mean Platelet Volume 10.1 fl (7.4-10.4); Monocytes Absolute Auto 1.3 K/mm3 (0.1-0.6); Monocytes Percent Auto 12.4 % (2.6-8.5); Neutrophils Absolute Auto 5.9 K/mm3 (1.3-6.7); Neutrophils Percent Auto 58.4 % (45.5-73.1); Platelet Count Result 287 k/mm3 (150-375); Red Blood Count 5.73 M/mm3 (4.6-6.20); Red Cell Distribution Width 13.1 % (11.5-14.5); White Blood Count 10.1 K/mm3 (4.5-10.0)
[2023-12-25 16:42] LABS: Alanine Aminotransferase 40 U/L (6-50); Albumin Level 4.4 g/dL (3.5-5.1); Alkaline Phosphatase 89 U/L (38-126); Anion Gap 9 mmol/L (4-12); Aspartate Amino Transferase 39 U/L (17-59); Bilirubin,Total 0.5 mg/dL (0.2-1.3); Blood Urea Nitrogen 19 mg/dL (9-20); Carbon Dioxide 22 mmol/L (22-30); Chloride 107 mmol/L (98-107); Estimated CRCL calculation 79 ml/min; Estimated Glomerular Filt Rate > 60; Glucose 101 mg/dL (65-110); Sodium 138 mmol/L (137-145)
[2023-12-25 16:45] LABS: INR 0.9; Prothrombin Time 12.6 Seconds (11.1-14.7)
[2023-12-25 16:46] LABS: Partial Thromboplastin Time 27.6 Seconds (22.3-36.8)
[2023-12-25 16:54] LABS: NT Pro B Type Natriuretic Pept 261 pg/mL (19.9-100); Troponin I 0.019 ng/mL (0.000-0.034)
[2023-12-25] MEDS: ASPIRIN 81 MG CHEWABLE TABLET 324 MG PO (17:22)
[2023-12-25] MEDS: dilTIAZem 100 MG/100 ML 100 MG/100 ML BAG IV CONT (17:22)
[2023-12-25] MEDS: ENOXAPARIN 100 MG/ML SYRINGE 90 MG SUB-Q (17:23)
--- NOTE | 2023-12-25 18:56 | ADMGEN ---
This patient, Luigi Vela, was admitted to IMU Room 201-01. Patient/family oriented to hospital policies and general routines including ID bracelet, bed and alarms, visiting hours, pain management, procedures, bathroom and other care routines, personal items, smoking policy, room service/diet, and visiting hours. Information on how to activate the Rapid Response Team has been discussed. Patient/Family are encouraged to report perceived risks to care and to ask questions if they do not understand what they are told or what they should do.
[2023-12-25 20:28] LABS: Troponin I 0.044 ng/mL (0.000-0.034)
--- NOTE | 2023-12-25 21:16 | PM.IMHP ---
H&P: HPI History of Present Illness Date/Time: 12/25/23 21:16 Chief Complaint: Palpitations, Chest Pain Narrative: 60 y/o M presents here with palpitations and chest pain with PMH of HTN, HLD, hypothyroidism, hyperparathyroidism, and CVA (2019, no residual deficits). The patient presents here from home for further evaluation of palpitations and chest pain. Initially started with chest pain on Friday (12/20). He describes the chest pain as left sided, radiating slightly to his LUE (numbness), intermittent, lasting 1-3 hours, potentially aggravated by ETOH, and alleviated by holding a pillow tightly against his chest. Onset of chest pain coincided with watching presidential candidate speech where there was a near assassination. Initially believed chest pain was due to stress due to this. Now accompanied by palpitations that have been intermittent with no alleviating or aggravating factors with onset on Friday (12/22). Follows with Dr. Ramos (new to him, has followed with a previous member of same dept) due to a aortic aneurysm that was discovered when he had a stroke in 2018. Due to symptoms he scheduled an appt with the cardiology team for today, at the appt it was discovered that he had a HR in the 150's, and he was directed to the ED. His HR upon arrival to the ED was 169. He was given 6 mg of Adenosine IVP and 10 mg of diltiazem IVP with conversion to NSR. Initial VS at presentation: 97.6? F, HR 169, RR 15, 153/102, and 97% on RA. ED workup showed: WBC 10.1, hemoglobin 17.2, normal coags, no significant electrolyte derangements, creatinine 0.8 and GFR >60, initial troponin 0.019, BNP 261. CXR showed no acute cardiopulmonary pathology. Review of Systems Review of Systems: All systems reviewed & are unremarkable except as noted in HPI and below [facility] Past Medical History Medical History Bicuspid aortic valve Environmental allergies Erectile dysfunction Essential (primary) hypertension History of stroke (~04/2019) Hyperlipidemia Primary hyperparathyroidism Pseudoaneurysm of femoral artery (~12/2021) right status post cardiac catheterization, resolved spontaneously Stomach ulcer Thoracic ascending aortic aneurysm Upper GI bleed Surgical History Surgical History Hx of sinus surgery (~1985) S/P cardiac catheterization (~11/2021) Family History Family History Mother COPD (chronic obstructive pulmonary disease) Cancer Father Diabetes mellitus Heart disease heart attack age 55, CABG Hypertension Social History Social History Social History: Patient lives with his Ariane who he does needs to be a full code. 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 He does not use illicit drugs. He has 3 children. 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
[2023-12-25] MEDS: SODIUM CHLORIDE 0.9% IV 1,000 ML 999 ML IV CONT (23:20)
[2023-12-25 23:21] LABS: Troponin I 0.051 ng/mL (0.000-0.034)
[2023-12-25] MEDS: dilTIAZem HCL 12 HR 60 MG CAP.12HR PO (23:22)
[2023-12-26] VITALS (11 sets, daily range): BP systolic 111–155; BP diastolic 59–74; PULSE 58–64; RESP 16–99; TEMP 36.2–37.1; O2SAT 96–99
--- NOTE | 2023-12-26 | ECHO_ITS ---
Patient Info Name: Luigi Vela Age: 68 years : 1955 Gender: Male Ht: 70 in Wt: 186 lbs BSA: 2.05 m2 HR: 67 bpm BP: 111 / 59 mmHg Heart Rhythm: Sinus Rhythm Technical Quality: Good Exam Date: 12/26/2023 9:03 AM Exam Location: Echo Lab Patient Status: Inpatient Admit Date: 12/25/2023 Staff Ordering Physician: Cris Davis APRN Gum Machine Operator: London Dye RDCS Attending Provider: Morgan Case MD Referring Physician: Susan LANDIN; Exam Type: CA echo doppler color flow Study Info Indications - new onset dysrhythmia Complete two-dimensional, color flow and Doppler transthoracic echocardiogram is performed. Summary 1. Complete two-dimensional, color flow and Doppler transthoracic echocardiogram is performed. 2. Mild concentric left ventricular hypertrophy with normal systolic function and grade 1 diastolic noncompliance. 3. Mitral annular calcium. 4. Trileaflet aortic valve with mild sclerosis but no stenosis. Left Ventricle Left ventricular chamber dimension is normal. Left ventricular systolic function is normal, estimated at 60-65%. There is mild concentric increased left ventricular wall thickness. The left ventricular diastolic function is grade I diastolic dysfunction. Right Ventricle Right ventricular chamber dimension is normal. Left Atria Left atrial chamber dimension is normal. Right Atria Right atrial chamber dimension is normal. Aortic Valve The aortic valve is trileaflet. There is mild aortic valve sclerosis. Pulmonic Valve The pulmonic valve is not well visualized. Mitral Valve The mitral valve has normal leaflets. The mitral valve annulus is mildly calcified. Tricuspid Valve The tricuspid valve leaflets are normal. Pericardium/Pleural The pericardium appears normal. Aorta The aortic root size at the sinus of Valsalva is normal. Left Ventricular Outflow Tract Name Value Normal LVOT 2D LVOT Diameter 2.1 cm LVOT Doppler LVOT Peak Velocity 89 cm/s LVOT Peak Gradient 3 mmHg LVOT Mean Gradient 2 mmHg LVOT VTI 25 cm LVOT VTI/AV VTI Ratio 1.0 LVOT Stroke Volume 86 ml LVOT CO 5.2 l/min LVOT CI 2.5 l/min/m2 Pulmonic Valve Name Value Normal PV Doppler PV Peak Velocity 99 cm/s PV Peak Gradient 4 mmHg Mitral Valve Name Value Normal MV Doppler MV Decel [place] 243 cm/s2 MV PHT 91 ms MV Area (PHT)
[2023-12-26 04:22] LABS: Hematocrit 42.1 % (42.0-52.0); Mean Corpuscular HGB Conc 32.8 g/dl (32-36); Mean Corpuscular Hemoglobin 29.5 pg (26-34); Mean Platelet Volume 10.2 fl (7.4-10.4); Platelet Count Result 224 k/mm3 (150-375); Red Blood Count 4.68 M/mm3 (4.6-6.20); Red Cell Distribution Width 13.2 % (11.5-14.5); White Blood Count 6.9 K/mm3 (4.5-10.0)
[2023-12-26 04:43] LABS: Hemoglobin 13.8 g/dL (14.0-18.0)
[2023-12-26 04:48] LABS: Alanine Aminotransferase 30 U/L (6-50); Albumin Level 3.1 g/dL (3.5-5.1); Alkaline Phosphatase 66 U/L (38-126); Anion Gap 6 mmol/L (4-12); Aspartate Amino Transferase 26 U/L (17-59); Bilirubin,Total 0.5 mg/dL (0.2-1.3); Blood Urea Nitrogen 17 mg/dL (9-20); Calcium 9.8 mg/dL (8.4-10.2); Carbon Dioxide 22 mmol/L (22-30); Chloride 111 mmol/L (98-107); Estimated CRCL calculation 90 ml/min; Estimated Glomerular Filt Rate > 60; Glucose 90 mg/dL (65-110); Potassium 4.2 mmol/L (3.4-5.0); Sodium 139 mmol/L (137-145)
[2023-12-26 06:50] LABS: Hematocrit 47.4 % (42.0-52.0); Hemoglobin 15.4 g/dL (14.0-18.0)
--- NOTE | 2023-12-26 07:51 | PM.CNCAR ---
Assessment and Plan Assessment and plan (1) Atrial flutter with rapid ventricular response: Code(s): I48.92 - Unspecified atrial flutter Status: Acute Plan This is a 68-year-old man who has mildly dilated ascending aorta and a questionably bicuspid aortic valve. He presents feeling unwell for several days yesterday and was found to be in atrial flutter two-to-one conduction. This is clearly the source of his symptoms. Interestingly intravenous diltiazem rapidly restored sinus rhythm. According to Dr. Olivera from previous notes he has not been placed on a placed on a beta-lashanda because is sinus rhythm he tends to be rather bradycardic and he did not feel well when he was on beta-lashanda treatment in the past. Because of this I am going to add oral diltiazem to his regimen since he rapidly converted to sinus rhythm with intravenous diltiazem last evening. He also should be anticoagulated and I will start oral apixaban. From my perspective he can be discharged and I will arrange for outpatient follow-up in my office. He should be seen in the office within about a month or so and I will see that that happens. Discussed with him the possibility of more aggressive antiarrhythmic therapy in the future if he has recurrences of this and or consultation with electrophysiology regarding an atrial flutter ablation procedure if we is be proved to be difficult to control. Maged Ramos MD [facility] History of Present Illness History of Present Illness Consult date/time: 12/26/23 07:51 Reason For Visit: Atrial flutter with RVR, Chest pain Narrative: This is a 68-year-old man who I am seeing at the request of the hospitalist after he was admitted yesterday with atrial flutter with rapid ventricular response. I met this patient for the 1st time in the office yesterday when he called feeling unwell for several days and asking to be seen. He was previously seen by my partner, Dr. Porter who has recently retired because of concerns regarding ascending aortic aneurysm. His workup has demonstrated a mild enlargement of his ascending aorta at 4.1 cm and I believe there was some question as to whether he has a bicuspid aortic valve although the valve was not ideally visualized on his echocardiograms. Having said that the valve was not significantly stenotic and he was followed conservatively in the office. He did have an episode of some chest pain off and on that led to catheterization being done in 2021 that showed no evidence of ischemic heart disease. When he came to the office he was reporting feeling unwell since Friday of this past weekend with episodes of some chest pain as well as the sense of tachycardia and palpitations. When he came into the office he was very tachycardic with a heart rate of 171 and he was in atrial flutter with two-to-one conduction. He was a looked remarkably comfortable and hemodynamically stable despite that arrhythmia but given that situation he was sent to the emergency room. He was initially given some intravenous adenosine which apparently demonstrated his a flutter wave and then he was placed on intravenous diltiazem after which he very rapidly restored into sinus rhythm. He became asymptomatic and he was admitted to the hospital overnight. He feels well this morning and has no other complaints. He does have hypertension and takes lisinopril for that. Review of Systems Constitutional: Constitutional: Reports no additional constitutional complaints Eyes: Eyes: Reports no additional eye complaints ENT: Reports system reviewed and no additional complaints, except as documented Cardiovascular: Cardiovascular: Reports as per HPI, Reports chest pain and Reports palpitations Respiratory: Respiratory: Reports no additional respiratory complaints Gastrointestinal: Gastrointestinal: Reports no additional gastrointestinal complaints Musculoskeletal: Musculoskeletal: Reports no additional musculoskeletal comp
[2023-12-26] MEDS: dilTIAZem HCL CD 180 MG CAP.24HR PO (08:11)
[2023-12-26] MEDS: lisinopriL 20 MG TABLET PO (08:11)
--- NOTE | 2023-12-26 14:51 | PM.DS ---
DS: Admitting Diagnosis Discharge Date 12/26/23 Admitting Diagnosis Palpitations and chest pain DS: Discharge Diagnosis Discharge Diagnosis (1) Atrial flutter with rapid ventricular response: Code(s): I48.92 - Unspecified atrial flutter Status: Acute (2) Essential (primary) hypertension: Code(s): I10 - Essential (primary) hypertension Status: Acute (3) Hypercalcemia: Code(s): E83.52 - Hypercalcemia Status: Acute DS: Summary Hospital Course Reason for hospitalization: 68yo man with HTN, hyperPTH, mildly dilated ascending aorta and a questionably bicuspid aortic valve here for palpitations and chest pain. He was found to have AFib/RVR in the clinic. Please see H&P for details. Hospital Course: Heart rate was up to 160's in the ED. He was given IV fluids and a dose of adenosine. Full dose ASA and then lovenox given when AFib confirmed. he converted to NSR after Diltiazem 10mg IV x1. Labs were unrevealing except for calcium of 11. iPTH has been known to be mildly elevated and he has had a positive SPECT scan recently. Repeat calcium level was normal. TSH normal. Troponin elevated to 0.051 felt related to the tachycardia. CXR clear. EKG showing AFlutter, incomplete right BBB and borderline R wave progression. Repeat EKG after he converted showing normal sinus with incomplete right BBB. Echo shows EF of 60-65%, mild concentric increased LV wall thickness and grade 1 diastolic dysfunction. Patient was seen by Cardiology. He was started on oral diltiazem. Lovenox was converted to Eliquis. He did well and remained in normal sinus rhythm. He overall did well and was able to be discharged home on 12/26/2023. Status at Discharge Cognitive/behavioral status at discharge: stable Time Spent with Patient Time attestation: Total time spent providing and/or coordinating discharge services: 35 minutes Time spent: Greater than 30 minutes Exam Narrative: AF 98.8 146/67 62 20 99% ra Gen - NARD Chest - CTA bilaterally, nml RR CV - RRR S1/S2. Tele showing no significant dysrhythmias Abd - Soft, NT/ND, Positive BS Ext - No pedal edema Neuro - Alert and oriented. Nonfocal exam. Psych - Nml mood and affect Skin - Warm and dry DS: Data Data Completed and Pending Labs on day of discharge: Labs from last 24 hours 12/26/23 12/26/23 12/25/23 06:37 03:52 22:25 WBC 6.9 RBC 4.68 Hgb 15.4 13.8 L D Hct 47.4 42.1 MCV 90.0 MCH 29.5 MCHC 32.8 RDW 13.2 Plt Count 224 MPV 10.2 Immature Gran % (Auto) Neut % (Auto) Lymph % (Auto) [place] % (Auto) Eos % (Auto) Baso % (Auto) Lymph # (Auto) [place] # (Auto) Eos # (Auto) Baso # (Auto) Abs Immat Gran (auto) Absolute Neuts (auto) Absolute Nucleated RBC Nucleated RBC % PT INR APTT Sodium 139 Potassium 4.2 Chloride 111 H Carbon Dioxide 22 Anion Gap 6 BUN 17 Creatinine 0.70 Estim Creat Clear Calc 90 Estimated GFR > 60 Glucose 90 Calcium 9.8 Total Bilirubin 0.5 AST 26 ALT 30 Alkaline Phosphatase 66 Troponin I 0.051 H* NT-Pro-B Natriuret Pep Total Protein 5.0 L Albumin 3.1 L TSH (Reflex) 2.470 12/25/23 12/25/23 19:31 16:24 WBC 10.1 H RBC 5.73 Hgb 17.2 D Hct 50.9 MCV 88.8 MCH 30.0 MCHC 33.8 RDW 13.1 Plt Count 287 MPV 10.1 Immature Gran % (Auto) 0.5 Neut % (Auto) 58.4 Lymph % (Auto) 25.8 [place] % (Auto) 12.4 H Eos % (Auto) 2.3 Baso % (Auto) 0.6 Lymph # (Auto) 2.61 [place] # (Auto) 1.3 H Eos # (Auto) 0.2 Baso # (Auto) 0.1 Abs Immat Gran (auto) 0.05 H Absolute Neuts (auto) 5.9 Absolute Nucleated RBC 0.000 Nucleated RBC % 0.0 PT 12.6 INR 0.9 APTT 27.6 Sodium 138 Potassium 4.0 Chloride 107 Carbon Dioxide 22 Anion Gap 9 BUN 19 Creatinine 0.80 Estim Creat Clear Calc 79 Estimated GFR > 60 Glucose 10
== END 2023-12-26 15:35 | disposition home or self-care (01) ==
LOC: ANHED 16:36 → ANHIMU 18:18
PROVIDERS: Internal Medicine; Student in an Organized Health Care Education/Training Program; Admitting Provider Internal Medicine; Emergency Provider Emergency Medicine; PCP Family Medicine; Visit Provider Internal Medicine
DX: I48.92 Unspecified atrial flutter (principal); E83.52 Hypercalcemia; I10 Essential (primary) hypertension; E78.5 Hyperlipidemia, unspecified; E03.9 Hypothyroidism, unspecified; I71.20 Thoracic aortic aneurysm, without rupture, unspecified; Q23.1 Congenital insufficiency of aortic valve; Z86.73 Personal history of transient ischemic attack (TIA), and cerebral infarction without residual deficits; Z79.82 Long term (current) use of aspirin
CPT/HCPCS: 36415; 71045; 80053; 83880; 84443; 84484; 85014; 85018; 85025; 85027; 85610; 85730; 93005; 93306; 96365; 96366; 96372; 96375; 96376; 99285; A9270; G0378; J0153; J1650; J7030

== ENCOUNTER 2024-01-02 09:31 | Outpatient (CLI) | payer MEDICARE, SELFPAY ==
--- NOTE | ~2024-01-02 | DEXA_ITS ---
Bone Density Report Name: RICHARD CARO Age: 68 Sex: Male Ethnicity: White Date of : 1955 Indication: parental hip fracture; Referring Provider: MALDONADO TRAORE Study: Bone densitometry was performed. Exam Date: January 02, 2024 Accession number: [id number] Bone Density: Region BMD T-score Z-score Classification AP Spine(L1-L4) 1.208 1.1 1.9 Normal Femoral Neck (Left) 0.711 -1.6 -0.5 Osteopenia Total Hip (Left) 0.998 -0.2 0.4 Normal Femoral Neck (Right) 0.748 -1.3 -0.2 Osteopenia Total Hip (Right) 1.053 0.1 0.8 Normal Total Hip Mean 1.025 -0.1 0.6 Normal World Health Organization criteria for BMD impression classify patients as: Normal (T-score at or above -1.0), Osteopenia (T-score between -1.0 and -2.5), or Osteoporosis (T-score at or below -2.5). 10-year Fracture Risk(1): Major Osteoporotic Fracture 11% Hip Fracture 2.3% Reported Risk Factors: [place] (), Neck BMD=0.711, BMI=28.8, parental fracture (1) FRAX(R) Version 3.08. Fracture probability calculated for an untreated patient. Fracture probability may be lower if the patient has received treatment. Clinical Information Provided by Patient: Parent has had a hip fracture Patient maximum height was 69.75 No regular weight bearing exercise Drinks caffeinated beverages Impression: The patient has low bone mass, based on the Left Femoral Neck T-score. The patient has an estimated ten-year risk of hip fracture of 2.3% and an estimated ten-year risk of major fracture of 11%, based on the WHO FRAX algorithm. The patient has risk factors, including: parental hip fracture. Discussion: BONE DENSITY IS LOW AT ONE OR MORE SKELETAL SITES. This patient's lowest T-score is low at one or more skeletal sites. It meets the World Health Organization's (WHO) criteria for ?low bone mass? (T-score between -1.0 and -2.5). The patient's 10-year risk of fracture as calculated by FRAX is less than the threshold where pharmacological therapy is recommended by the National Osteoporosis Foundation (NOF). However, all treatment decisions require clinical judgment and consideration of individual patient factors, including patient preferences, comorbidities, previous drug use, risk factors not captured in the FRAX model (e.g., frailty, falls, vitamin D deficiency, increased bone turnover, interval significant decline in bone density) and possible under or overestimation of fracture risk by FRAX. The patient should follow a healthful lifestyle (good nutrition with adequate calcium and vitamin D, and appropriate weight-bearing exercise). Follow-Up: Consider repeating this study in 2 to 3 years to reassess this patient's status, or sooner if there is some new clinical indication. Reported by: SUZE on 01/02/2024 10:13:00 AM.
== END 2024-01-02 09:32 | disposition home or self-care (01) ==
PROVIDERS: PCP Family Medicine; Visit Provider Internal Medicine
DX: E83.52 Hypercalcemia (principal); M85.89 Other specified disorders of bone density and structure, multiple sites
CPT/HCPCS: 77080

== ENCOUNTER 2024-01-21 13:48 | Outpatient (CLI) | payer MEDICARE, SELFPAY ==
--- NOTE | ~2024-01-21 | XR_ITS ---
3 VIEWS LUMBAR SPINE Ordering provider: Sophy Corbin MD History: . No injury lbp for a couple months . Comparison: None. FINDINGS: VERTEBRAL BODIES: No visible fracture or subluxation. DISK SPACES: Narrowing of all disc spaces. Multilevel facet joint disease. SOFT TISSUES: Aortic Calcification. Bilateral sacroiliacs. IMPRESSION: No acute osseous abnormality lumbar spine. Reviewed, dictated and finalized at location A.
== END 2024-01-21 13:49 ==
PROVIDERS: PCP Family Medicine; Visit Provider Family Medicine
DX: M54.50 Low back pain, unspecified (principal)
CPT/HCPCS: 72100

== ENCOUNTER 2024-04-30 12:30 | Outpatient (RCR) | payer MEDICARE, SELFPAY ==
--- NOTE | 2024-02-05 15:21 | PTOPEVAL1 ---
Assessment and note entered by Karla Mcelroy, PT Evaluation Information Assessment Status Evaluation Diagnosis M54.50; G89.29 ICD-10 Condition Codes (PT) M54.6,Pain in low back M54.50,Weakness R53.1 Subjective Information Pt reports a flare up in the back pain which is chronic in nature. 4 weeks ago, had a hard time moving or getting up from a chair without a cane; sleeps on the L side due to increased in discomfort when laying on the R. Pt states that he stretches to relieve discomfort, does not take any medication. sitting on a hard chair aggravates pain. Adjusting work chair to reduce pain level; Works 10 - 12 hrs, gets up approx every hour to move around. Assessment PT Clinical Summary Pt is a 68 yo male patient who presents to therapy with a flare up of a lumbar pain that is chronic in nature. He reports otherwise has an active lifestyle and works out regularly for wellness. He demos significantly limited ROM of the thoracolumbar spine, pain with extension motions, weakness, balance and gait impairments. He will benefit from skilled PT to improve lumbar stabilization, spine and BLE flexibility, reduce pain and improve functional mobility to allow continued performance of IADLs and recreational activities without pain and discomfort. Plan of Care Interventions Electrical Stimulation,Hot Pack/Cold Pack,Manual Therapy,Mechanical Traction,Neuro Re-education, Patient/Caregiver Education,Therapeutic Activities, Therapeutic Exercise,Ultrasound Other Interventions IASTM, Taping PT Services Indicated Yes Treatment Frequency and 2x/wk x 12 visits Duration These treatments will address the objective and functional deficits as defined above. The patient will be advanced safely and appropriately in order for the patient to progress towards his/her prior level of function. Additional exercises will be introduced and as well as a comprehensive home exercise program upon discharge, if needed, ?to ensure carryover of functional gains achieved in the clinic. This treatment plan has been reviewed and agreement upon by the patient.
--- NOTE | 2024-02-17 16:56 | PCPTNOTE ---
Patient called & cancelled scheduled appointment this date due to sudden work change. Cancelled within 2 hours of appt.
--- NOTE | 2024-05-04 14:46 | PTOPPROG ---
Assessment and note entered by Karla Mcelroy, PT Evaluation Information Assessment Status Progress Diagnosis M54.50; G89.29 ICD-10 Condition Codes (PT) M54.6,Pain in low back M54.50,Weakness R53.1 Subjective Information Pt reports he notice pain is much better most days , Very rare does pain goes up to higher levels these days. Reports feeling intense soreness after last session with traction. The soreness lasted upto 2 days but is gone now. Assessment PT Clinical Summary Pt received a total of 9 PT treatment sessions and demo gains in strength and mobility. Pt also reports noticed improvement with pain levels and pain occurrence. Overall, pt shows good progress and have partially met established goals. He will benefit from continued skilled PT interventions to continue managing pain, improve postural alignment, improve balance and gait deficits to improve safety and performance of IADLs without pain and discomfort. Plan of Care Interventions Electrical Stimulation,Hot Pack/Cold Pack,Manual Therapy,Mechanical Traction,Neuro Re-education, Patient/Caregiver Education,Therapeutic Activities, Therapeutic Exercise,Ultrasound Other Interventions IASTM, Taping PT Services Indicated Yes Treatment Frequency and 1x/wk x 6 visits Duration These treatments will address the objective and functional deficits as defined above. The patient will be advanced safely and appropriately in order for the patient to progress towards his/her prior level of function. Additional exercises will be introduced and as well as a comprehensive home exercise program upon discharge, if needed, ?to ensure carryover of functional gains achieved in the clinic. This treatment plan has been reviewed and agreement upon by the patient.
== END 2024-05-02 23:59 | disposition home or self-care (01) ==
LOC: ANHHIPT 12:30
PROVIDERS: PCP Family Medicine; Visit Provider Family Medicine
DX: M54.50 Low back pain, unspecified (principal); G89.29 Other chronic pain
CPT/HCPCS: 97012; 97014; 97032; 97035; 97110; 97112; 97140; 97161; 97530; 97750; G0283

== ENCOUNTER 2024-07-29 14:30 | Outpatient (RCR) | payer MEDICARE, SELFPAY ==
--- NOTE | 2024-07-29 16:16 | PTOPDC ---
Assessment and note entered by Karla Mcelroy, PT Discharge Information Assessment Status Discharge Diagnosis M54.50; G89.29 ICD-10 Condition Codes (PT) Pain in Thoracic Spine M54.6,Weakness R53.1,Pain in low back M54.50 Subjective Information Pt reports he was feeling great until he went on a cruise and twisted his back which triggered an increased pain to the lower R side of his back down to the outside of his R thigh. Today is not too bad but he also took 3 Advil capsules last night. Reported Pain Level Pain Score 0: Self Report Additional Pain Score Comments trunk and hip rotation, NIDIA position increases pain to 8/10 on the lower R area. Assessment PT Clinical Summary Pt demos good progress with therapy, however has a new onset of pain in a different body area. Test and measures reveal deficits in strength and flexibility, pain levels affects functional mobility. He reports he will see his PCP in September and would like to be DC'd with [facility] at this time due to travel and schedule conflict. Skilled PT discontinued. Plan of Care PT Services Indicated No
== END 2024-07-30 08:12 | disposition home or self-care (01) ==
LOC: ANHHIPT 14:30
PROVIDERS: PCP Family Medicine; Visit Provider Family Medicine
DX: M54.50 Low back pain, unspecified (principal); G89.29 Other chronic pain
CPT/HCPCS: 97014; 97110; 97112; 97140; 97530; 97750; G0283

== ENCOUNTER 2025-04-22 00:06 | Day surgery (SDC) | payer MEDICARE, SELFPAY ==
--- NOTE | 2025-04-18 15:09 | PC.NURSE ---
Spoke with patient regarding medication Eliquis. Patient verbalizes understanding that the last dose is to be taken on 04/19/2025 and the Endoscopist will instruct them when to restart after the procedure.
[2025-04-22 11:45] VITALS: BP 166/93; PULSE 90; RESP 20; TEMP 36.3; O2SAT 96; BMI 28.9
[2025-04-22] MEDS: LACTATED RINGERS 1,000 ML 150 ML IV CONT (11:53)
--- NOTE | 2025-04-22 12:13 | P.HP_ITS ---
History of Present Illness History of Present Illness Consent: Risks, benefits, and alternatives have been discussed and questions answered. Patient agrees to proceed with procedure. Chief complaint: Personal history of colon polyps, unspecified Narrative: Luigi Vela is a 70 year old male with colon polyp in 2019 Review of Systems Review of Systems: All systems reviewed & are unremarkable except as noted in HPI and below PMFSH Past Medical History Medical History (Updated 04/22/25 @ 12:14 by Jorje Garces MD) Adenomatous colon polyp History of colon polyps Chronic low back pain without sciatica Atrial flutter, paroxysmal Osteopenia Onychomycosis treated with terbinafine in 2023 Primary hyperparathyroidism Erectile dysfunction Pseudoaneurysm of femoral artery (~12/2021) right status post cardiac catheterization, resolved spontaneously Thoracic ascending aortic aneurysm Environmental allergies History of stroke (~04/2019) Stomach ulcer Essential (primary) hypertension Upper GI bleed Bicuspid aortic valve Hyperlipidemia Surgical History Surgical History S/P cardiac catheterization (~11/2021) Hx of sinus surgery (~1985) Family History Family History Mother COPD (chronic obstructive pulmonary disease) Cancer Father Diabetes mellitus Heart disease heart attack age 55, CABG Hypertension Social History Social History Social History: Patient lives with his Ariane who he does needs to be a full code. 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 He does not use illicit drugs. He has 3 children. 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 [employer] Gender identity (if verbalized by the patient): Male Spiritual care concerns: No Agree to blood products: No Meds Home Medications and Allergies Home Medications ?Medication ?Instructions ?Recorded ?Confirmed ?Type apixaban 5 mg tablet (Eliquis) 5 mg PO Q12HR #60 tabs 12/26/23 04/22/25 Rx tadalafil 10 mg tablet (Cialis) 10 mg PO DAILY PRN sex ual activity 04/26/24 04/18/25 Rx #30 tabs lisinopril 20 mg tablet 20 mg PO DAILY #90 tabs 12/0904/22/25 Rx diltiazem HCl 180 mg 180 mg PO QAM #90 caps 03/0104/22/25 Rx capsule,extended release 24 hr, controlled fluticasone propionate 50 2 spray intranasal DAILY PRN 03/28/25 04/22/25 History mcg/actuation nasal Allergic Symptoms spray,suspension (Allergy Relief (fluticasone)) atorvastatin 40 mg tablet 40 mg PO QHS #90 tabs 04/22/25 Rx Allergies Allergy/AdvReac Type Severity Reaction Status Date / Time hydralazine Allergy Intermediate Hives Verified 04/22/25 11:43 Vital Signs Vital Signs - 24 hr 04/22/25 11:45 Temperature 97.3 F L Pulse Rate 90 Respiratory Rate 20 Blood Pressure 166/93 H Pulse Oximetry 96 Oxygen Delivery Room Air Exam Const: General: comfortable and no acute distress HENMT: Face/Nose/Sinus: Normal nares present Eyes: General: appearance normal, both eyes and all related structures Resp: Auscultation: clear to auscultation bilaterally Cardio: Rate: regular rate Rhythm: regular rhythm GI: Inspection: non-distended GI Palp: Yes Soft to palpation Skin: General skin exam: normal color Extrem: General: normal to inspection Psych: Mental Status: mental status grossly normal Assessment and Plan Assessment and plan (1) Adenomatous colon polyp: Code(s): D12.6 - Benign neoplasm of colon, unspecified Status: Acute Assessment and Plan: colonoscopy
--- NOTE | 2025-04-22 12:14 | P.PNAN_ITS ---
Anes - Initial Pre Proc Eval Procedure: Operation Date: 04/22/25 13:00 Proposed Procedures p Screening Colonoscopy - Jorje Garces MD Date/Time: 04/22/25 12:14 Surgeon: Jorje Garces MD Pre Op Diagnosis: Personal history of colon polyps, unspecified Patient Data Age: 70 Gender: M Height: 1.75 m Weight: 88.9 kg Last Vital Signs Temp 36.3 C L 04/22/25 11:45 Pulse 90 04/22/25 11:45 Resp 20 04/22/25 11:45 BP 166/93 H 04/22/25 11:45 Pulse Ox 96 04/22/25 11:45 O2 Del Method Room Air 04/22/25 11:45 Allergies Allergy/AdvReac Type Severity Reaction Status Date / Time hydralazine Allergy Intermediate Hives Verified 04/22/25 11:43 Home Medications ?Medication ?Instructions ?Recorded ?Confirmed ?Type apixaban 5 mg tablet (Eliquis) 5 mg PO Q12HR #60 tabs 12/26/23 04/22/25 Rx tadalafil 10 mg tablet (Cialis) 10 mg PO DAILY PRN sex ual activity 04/26/24 04/18/25 Rx #30 tabs lisinopril 20 mg tablet 20 mg PO DAILY #90 tabs 12/0904/22/25 Rx diltiazem HCl 180 mg 180 mg PO QAM #90 caps 03/0104/22/25 Rx capsule,extended release 24 hr, controlled fluticasone propionate 50 2 spray intranasal DAILY PRN 03/28/25 04/22/25 History mcg/actuation nasal Allergic Symptoms spray,suspension (Allergy Relief (fluticasone)) atorvastatin 40 mg tablet 40 mg PO QHS #90 tabs 04/22/25 Rx Patient hx anesthesia problems: none Family hx anesthesia problems: none Results Review: All pre-operative results and documents have been reviewed as part of the pre- operative evaluation. [facility] Past Medical History Medical History History of colon polyps Chronic low back pain without sciatica Atrial flutter, paroxysmal Osteopenia Onychomycosis treated with terbinafine in 2023 Primary hyperparathyroidism Erectile dysfunction Pseudoaneurysm of femoral artery (~12/2021) right status post cardiac catheterization, resolved spontaneously Thoracic ascending aortic aneurysm Environmental allergies History of stroke (~04/2019) Stomach ulcer Essential (primary) hypertension Upper GI bleed Bicuspid aortic valve Hyperlipidemia Surgical History Surgical History S/P cardiac catheterization (~11/2021) Hx of sinus surgery (~1985) Family History Family History Mother COPD (chronic obstructive pulmonary disease) Cancer Father Diabetes mellitus Heart disease heart attack age 55, CABG Hypertension Social History Social History Social History: Patient lives with his Ariane who he does needs to be a full code. 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 He does not use illicit drugs. He has 3 children. 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 [employer] Gender identity (if verbalized by the patient): Male Spiritual care concerns: No Agree to blood products: No Anes - Eval Final PreProcedure Day of Procedure 04/22/25 12:14 Patient weight: overweight Heart: regular rate and rhythm Lungs: clear to auscultation Airway: Mallampati scale class II Neurological: alert and oriented Last oral intake: >/= 8 hours ASA classification: III Emergent: no Anesthetic plan: proceed Anesthesia type and monitoring: general GIVS and standard monitoring Results Review: All pre-operative results and documents have been reviewed as part of the pre- operative evaluation. Informed Consent: The patient's anesthetic plan and its attendant risks and benefits were discussed with the patient/family/POA. Questions were solicited and answers provided to the satisfaction of the patient/family/POA.
[2025-04-22 12:25] VITALS: BP 126/53; PULSE 78; RESP 20; O2SAT 95
[2025-04-22 12:35] VITALS: BP 127/81; PULSE 71; RESP 22; O2SAT 97
[2025-04-22 12:45] VITALS: BP 172/88; PULSE 68; RESP 17; O2SAT 100
== END 2025-04-22 13:00 | disposition home or self-care (01) ==
PROVIDERS: PCP Family Medicine; Referring Provider Internal Medicine Gastroenterology; Visit Provider Internal Medicine Gastroenterology
PROC: 0DJD8ZZ Inspection of Lower Intestinal Tract, Via Natural or Artificial Opening Endoscopic (ICD-10-PCS; CPT 45378; principal; 2025-04-22 13:00)
DX: Z12.11 Encounter for screening for malignant neoplasm of colon (principal); K57.30 Diverticulosis of large intestine without perforation or abscess without bleeding; K64.8 Other hemorrhoids; Z86.0100 Personal history of colon polyps, unspecified
CPT/HCPCS: G0105; J2704; J7120